=== PATIENT | male | born 1990 | race Hispanic/Latino ===

== ENCOUNTER 2017-08-01 14:58 | Emergency (ER) | payer OTHER ==
[2017-08-01 15:35] LABS: RAPID GROUP A STREP NEGATIVE (NEGATIVE)
== END 2017-08-01 15:46 | disposition home or self-care (01) ==
LOC: EDH 14:58
DX: J02.0 Streptococcal pharyngitis (principal); M25.50 Pain in unspecified joint
CPT/HCPCS: 87804; 87880

== ENCOUNTER 2018-12-29 18:45 | Emergency (ER) | payer OTHER | END 2018-12-29 19:23 | disposition home or self-care (01) | LOC: EDH 18:45 | DX: K04.7 Periapical abscess without sinus (principal); Z72.0 Tobacco use | CPT/HCPCS: 99281 ==

== ENCOUNTER 2019-04-13 06:48 | Emergency (ER) | payer SELFPAY ==
[2019-04-13] MEDS ORDERED: ACETAMINOPHEN EXTRA STRENGTH 500 MG TABLET ONE (08:22)
[2019-04-13] MEDS ORDERED: GUAIFENESIN-DM 200/20 MG 10 ML ONE (08:22)
== END 2019-04-13 08:38 | disposition home or self-care (01) ==
LOC: EDH 06:48
DX: J06.9 Acute upper respiratory infection, unspecified (principal)
CPT/HCPCS: 87804

== ENCOUNTER 2022-05-23 21:47 | Emergency (ER) | payer OTHER ==
[~2022-05-23] VITALS: Ht 154.9 cm; Wt 79.4 kg
[2022-05-23 22:15] LABS: BASOPHILS % (AUTO) 0.4 % (0.0-5.0); EOSINOPHILS % (AUTO) 1.9 % (0.0-8.0); HEMATOCRIT 51.1 % (42-54); LYMPHOCYTES % (AUTO) 29.5 % (21.0-51.0); MEAN CORPUSCULAR HEMOGLOBIN 30.5 pg (27.0-33.0); MEAN CORPUSCULAR VOLUME 87.2 fL (79-99); MONOCYTES % (AUTO) 5.8 % (3.0-13.0); NEUTROPHILS % (AUTO) 61.9 % (40.0-77.0); PLATELET COUNT (AUTO) 248 K/uL (130-400); RED BLOOD CELL COUNT(AUTO) 5.86 MIL/uL (4.50-6.20); RED CELL DISTRIBUTION WIDTH 12.2 % (11.0-15.5); WHITE BLOOD COUNT (AUTO) 12.1 K/uL (4.8-10.8)
[2022-05-23 22:29] LABS: CREATININE 1.1 mg/dL (0.5-1.5); POTASSIUM 4.3 mmol/L (3.5-5.1)
[2022-05-23] MEDS ORDERED: ONDANSETRON 4MG INJ IVP ONE (22:30)
[2022-05-23] MEDS ORDERED: 0.9%NACL 1000ML 1,000 ML IV ONE (22:30)
[2022-05-23] MEDS ORDERED: LACTATED RINGERS 1000ML 1,000 ML IV SCH (22:30)
[2022-05-23 22:34] LABS: ALBUMIN 3.5 g/dL (3.5-5.0); TOTAL PROTEIN, SERUM 6.3 g/dL (6.0-8.3)
[2022-05-24 00:20] LABS: APPEARANCE,URINE CLEAR (CLEAR); BILIRUBIN,URINE NEGATIVE (NEGATIVE); COLOR,URINE LIGHT-YELLOW (YELLOW); GLUCOSE, URINE (UA) NEGATIVE (NEGATIVE); KETONES,URINE NEGATIVE (NEGATIVE); LEUKOCYTE ESTERASE ,URINE NEGATIVE Leu/uL (NEGATIVE); NITRATE,URINE NEGATIVE (NEGATIVE); OCCULT BLOOD,URINE NEGATIVE (NEGATIVE); PH,URINE 6.5 (5.0-8.0); PROTEIN,URINE 20 mg/dL (NEGATIVE); UROBILINOGEN,URINE 0.2 mg/dL (0.2-1.0)
[2022-05-24 00:58] VITALS: BP 100/60
[2022-05-24 01:02] LABS: AMPHET/METH SCREEN,URINE NEGATIVE (NEGATIVE); BARBITURATE SCREEN, URINE NEGATIVE (NEGATIVE); BENZODIAZEPINES SCREEN,URINE NEGATIVE (NEGATIVE); CANNABINOID SCREEN,URINE POSITIVE (NEGATIVE); COCAINE SCREEN,URINE POSITIVE (NEGATIVE); OPIATE SCREEN,URINE NEGATIVE (NEGATIVE); PHENCYCLIDINE SCREEN,URINE NEGATIVE (NEGATIVE)
== END 2022-05-24 01:00 | disposition left against medical advice (07) ==
LOC: EDH 21:47
DX: R55 Syncope and collapse (principal)
CPT/HCPCS: 99285; 96360; 71045; 96361; 84484; 80053; 83880; 80305; 85025; 36415; 93005; 81003; J7120; J7030; J2405

== ENCOUNTER 2024-02-05 21:53 | Emergency (ER) | payer SELFPAY ==
[~2024-02-05] VITALS: Ht 170.2 cm; Wt 79.4 kg
[2024-02-05] MEDS ORDERED: CLIN-141 PO (22:09)
[2024-02-05] MEDS ORDERED: KETO10TA2 PO (22:09)
--- NOTE | 2024-02-05 22:09 | ERN ---
General Chief Complaint: Tooth Ache/Pain Stated Complaint: C/O TOOTHACHE TO RT UPPER SIDE Time Seen by MD: 21:58 Time Seen by Midlevel: 21:58 Source: patient History of Present Illness Initial Comments 33-year-old male with no significant past medical history presenting to the ER for evaluation of pain and swelling to the right upper gum area. Patient states he has a dental infection. He has been taking ampicillin from [place] with little to no relief. Denies any fever, chills, nausea, vomiting, chest pain, shortness for breath, or any other symptoms at this time. Allergies: Coded Allergies: No Known Allergies (Unverified Allergy, Unknown, 05/23/22) Home Meds Active Scripts Clindamycin HCl (Clindamycin HCl) 300 Mg Capsule, 1 CAP PO QID for 10 Days, #40 CAP 0 Refills Prov:MOISÉS HAQ 02/05/24 Ketorolac Tromethamine (Ketorolac Tromethamine) 10 Mg Tablet, 1 TAB PO TID for pain for 5 Days, #15 TAB 0 Refills Prov:MOISÉS HAQ 02/05/24 Past Medical History Past Medical History: No Pertinent History Past Surgical History: None ROS Dictation CONSTITUTIONAL: Negative except for HPI HEAD/FACE: Negative except for HPI EENT: Negative except for HPI RESPIRATORY: Negative except for HPI GASTROINTESTINAL/ABDOMINAL: Negative except for HPI GENITOURINARY: Negative except for HPI MUSCULOSKELETAL: Negative except for HPI INTEGUMENTARY: Negative except for HPI NEUROLOGICAL/PSYCH: Negative except for HPI HEMATOLOGIC/LYMPHATIC: Negative except for HPI All Systems Negative, Except as noted above. 13 point review of systems assessed and all negative except for above. Physical Exam Physical Exam Dictation PHYSICAL EXAM: GENERAL: alert,, awake oriented x 3 HEENT: EOMI, Sclera non icteric, moist mucosa NECK: Supple, no JVD, trachea midline LUNGS: Clear breath sounds bilaterally. No wheezes HEART: Regular rate and rhythm. Normal S1 and S2, without murmurs ABD: Abdomen soft, nontender. Bowel sounds present EXT: No clubbing or cyanosis, NEURO: Alert and oriented to person, follows commands MDM MDM: 33-year-old male with no significant past medical history presenting to the ER for evaluation of pain and swelling to the right upper gum area. Patient states he has a dental infection. He has been taking ampicillin from [place] with little to no relief. Denies any fever, chills, nausea, vomiting, chest pain, shortness for breath, or any other symptoms at this time. On physical examination patient has erythema and swelling to the right upper, area. Physical examination is consistent with a dental abscess. Patient was given a [place] p.o., dexamethasone IM, ketorolac IM and Rocephin IM in the emergency department. He was observed in the emergency department for over 30 minutes and has remained stable. Repeat examination patient states his pain has completely resolved. He already has an appointment with a local dentist and will be following up outpatient. Patient was discharged home with a prescription for clindamycin. Return precautions discussed Differential diagnosis: Dental abscess, dental caries, There are no social concerns with this patient. Prescription drug management Prescriptions will include: Clindamycin Medical management and examination interpretation discussions were had by me with other qualified healthcare professionals as indicated for the patient's care. ED Course Orders Procedure Category Date Status Time Ketorolac PHA 02/05/24 Complete Tromethamine 30mg/Ml 22:30 Ceftriaxone 1g Vial PHA 02/05/24 Complete (Rocephine 1g Inj) 22:30 Dexamethasone 4mg/Ml PHA 02/05/24 Complete 1ml Vial (Dexametha 22:30 Current Medications Medications (Trade) Dose Ordered Sig/Emily Route PRN Reason Start Time Stop Time Status Last Admin Dose Admin Ceftriaxone Sodium (ROCEphine 1G INJ) 1 gm ONCE ONCE IM 02/05/24 22:30 02/05/24 22:31 DC 02/05/24 22:29 Dexamethasone Sodium Phosphate (dexaMETHasone 4MG/ML 1ML VIAL) 4 mg ONCE ONCE IV 02/05/24 22:30 02/05/24 22:31 DC 02/05/24 22:29 Ketorolac Tromethamine (toRADol) 30 mg ONCE ONCE IM 02/05/24 22:30 02/05/24 22:31 DC 02/05/24 22:29 Vital Signs Date Time Temp Pulse Resp B/P (MAP) Pulse Ox O2 Delivery O2 Flow Rate FiO2 02/05/24 22:25 98.1 65 18 140/90 98 Room Air* 0 21 02/05/24 21:56 97.3 70 20 147/100 99 Room Air DX & DISP Disposition: Discharge Departure Impression: Primary Impression: Dental abscess Condition: Stable Scripts Clindamycin HCl (Clindamycin HCl) 300 Mg Capsule 1 CAP PO QID for 10 Days, #40 CAP 0 Refills Prov: MOISÉS HAQ 02/05/24 Ketorolac Tromethamine (Ketorolac Tromethamine) 10 Mg Tablet 1 TAB PO TID for pain for 5 Days, #15 TAB 0 Refills Prov: MOISÉS HAQ 02/05/24 Referrals: SELF,REFERRAL (PCP) Time of Disposition: 22:09 I have reviewed the case, and I agree with, Diagnosis and Plan I performed the substantive portion of the visit. I have reviewed and personally made and approve the management plan that is documented in the note by myself or the ZANE. I acknowledge for responsibility for the patient's managem ent plan. MOISÉS HAQ Feb 05, 2024 22:09
[2024-02-05 22:25] VITALS: BP 140/90; PULSE 65; RESP 18; TEMP 98.1; O2SAT 98
[2024-02-05] MEDS: dexaMETHasone SOD PHOSPHATE 4 MG/ML 1ML VIAL IV ONE (22:29)
[2024-02-05] MEDS: ketOROlac 30MG VIAL (30MG/ML) IM ONE (22:29)
[2024-02-05] MEDS: cefTRIAXone 1G VIAL IM ONE (22:29)
== END 2024-02-05 22:42 | disposition home or self-care (01) ==
LOC: EDH 21:53
DX: K04.7 Periapical abscess without sinus (principal)
CPT/HCPCS: 99284; 96374; 96372 ×2; J1100; J0696; J1885